=== PATIENT | male | born 1965 | race Caucasian/White ===

== ENCOUNTER 2020-06-26 10:51 | Inpatient (IN) | payer OTHER ==
[~2020-06-26] VITALS: Ht 182.9 cm; Wt 90.3 kg
[~2020-06-26 10:51] MED LIST: ASPIRIN EC325 M1 PO; CRESTOR20 MG PO; NITROSTAT0.4 MG SL; PLAVIX75 MG PO; PRILOSEC20 MG PO; SYNTHROID88 MCG PO
[2020-06-26 12:32] LABS: BASOPHILS 0.1 % (0-2); EOSINOPHILS 1.8 % (0-7); HEMATOCRIT 45.8 % (42.0-54.0); HEMOGLOBIN 15.9 g/dL (13.5-17.5); IMMATURE GRANULOCYTES 0.2 % (0-5); LYMPHOCYTES 21.7 % (15-50); MCHC 34.7 g/dL (31.0-37.0); MEAN PLATELET VOLUME 10.9 fL (7.4-10.4); MONOCYTES 7.8 % (2-11); NEUTROPHILS 68.4 % (40-80); PLATELET COUNT 156 10x3/uL (130-400); RBC 4.82 10x6/uL (4.20-6.10); RDW 13.3 % (11.5-14.5)
[2020-06-26 12:34] LABS: ANION GAP 9.7 mmol/L (8-16); CALCIUM 9.5 mg/dL (8.5-10.1); CARBON DIOXIDE 26.3 mmol/L (21.0-32.0); CREATININE - SERUM 1.2 mg/dL (0.6-1.3)
[2020-06-26 12:40] LABS: BILIRUBIN - TOTAL 0.38 mg/dL (0.2-1.3); PROTEIN - SERUM 7.9 g/dL (6.4-8.2)
[2020-06-26 12:43] LABS: BILIRUBIN NEGATIVE (NEGATIVE); KETONE SMALL mg/dL (NEGATIVE); NITRITE NEGATIVE (NEGATIVE); UROBILINOGEN NORMAL mg/dL (< 2)
[2020-06-26 12:45] LABS: BACTERIA FEW HPF (NONE SEEN); WHITE CELLS - URINE 0-5 HPF (0-1)
[2020-06-26 14:00] VITALS: BP 126/89
[2020-06-26 17:27] VITALS: BP 108/69
--- NOTE | 2020-06-26 19:46 | NUR ---
RECIEVED REPORT FROM OFF GOING. ALERT AND ORIENTED X4. UP AD ELEUTERIO TO B/R. IV TO RT AC SL. ENIES ANY NEEDS AT THIS TIME.
[2020-06-26 22:24] VITALS: BP 113/71
[2020-06-27 03:19] VITALS: BP 121/70
[2020-06-27 03:43] VITALS: BP 131/71; BMI 27.0
[2020-06-27 06:04] LABS: APTT 38.5 SECONDS (22.8-39.4); INR 1.07 (0.85-1.17); PROTIME 13.9 SECONDS (11.6-15.0)
[2020-06-27 06:19] LABS: CKMB 1.1 U/L (0.0-3.6); CREATINE KINASE 135 UL (21-232); MAGNESIUM - SERUM 2.1 mg/dL (1.8-2.4); TROPONIN-I < 0.017 ng/mL (0.000-0.060)
[2020-06-27 06:59] VITALS: BP 102/61
[2020-06-27 07:00] VITALS: BP 82/64
[2020-06-27 10:19] LABS: CALC OSMOLALITY 275 mosm/kg (275-300); CALCIUM 9.2 mg/dL (8.5-10.1); CARBON DIOXIDE 22.6 mmol/L (21.0-32.0); CHLORIDE - SERUM 102 mmol/L (98-107); CREATININE - SERUM 0.9 mg/dL (0.6-1.3); GLUCOSE 105 mg/dL (74-106); POTASSIUM - SERUM 3.9 mmol/L (3.5-5.1); SODIUM 137 mmol/L (136-145); UREA NITROGEN 17 mg/dL (7-18); eGFR NON AFRICAN AMERICAN > 90 mL/min (90-120)
[2020-06-27 10:21] LABS: HEMATOCRIT 44.5 % (42.0-54.0); HEMOGLOBIN 15.3 g/dL (13.5-17.5); MCH 33.2 pg (26.0-34.0); MCHC 34.4 g/dL (31.0-37.0); MCV 96.5 fL (80.0-100.0); MEAN PLATELET VOLUME 11.4 fL (7.4-10.4); PLATELET COUNT 163 10x3/uL (130-400); RBC 4.61 10x6/uL (4.20-6.10); RDW 13.7 % (11.5-14.5); WBC 7.7 10x3/uL (4.8-10.8)
[2020-06-27 10:29] LABS: ALBUMIN 3.8 g/dL (3.4-5.0); ALKALINE PHOSPHATASE 82 U/L (30-120); ALT (SGPT) 19 U/L (10-68); BILIRUBIN - TOTAL 0.44 mg/dL (0.2-1.3); PROTEIN - SERUM 7.7 g/dL (6.4-8.2)
[2020-06-27 10:30] VITALS: BP 113/81
[2020-06-27 10:30] LABS: LIPASE 492 U/L (73-393)
[2020-06-27 10:53] LABS: PLATELET ESTIMATE NORMAL
[2020-06-27 12:34] LABS: CKMB 0.8 U/L (0.0-3.6); CREATINE KINASE 135 UL (21-232)
[2020-06-27 12:35] LABS: TROPONIN-I < 0.017 ng/mL (0.000-0.060)
[2020-06-27 13:05] VITALS: Ht 182.9 cm; Wt 90.3 kg
[2020-06-27] MEDS ORDERED: BACTRIM DS TAB1 EAC1 PO (13:40)
[2020-06-27] MEDS ORDERED: FLOMAX0.4 MG PO (13:41)
[2020-06-27] MEDS ORDERED: ULTRAM50 MG PO (13:42)
--- NOTE | 2020-06-27 14:43 | NUR ---
PT DISCHARGED HOME VIA WHEELCHAIR WITH FAMILY. SCRIPT GIVEN. PT SIGNED PROPER DISCHARGE INSTRUCTIONS AND REMOVED ALL VALUABLES FROM THE ROOM. PIV REMOVED WITH CATHETER TIP FULLY INTACT.
--- NOTE | 2020-06-28 17:22 | NUR ---
PT CALLED WITH COMPLAINT OF NOT BEING ABLE TO GET SCRIPT FILLED FROM [facility]. THEY STATE PRESCRIBER NOT ABLE TO PRESCRIBE SCHEDULE 5 NARCOTICS PER [place] SITE. MARCELO ALCANTAR GONE AT PRESENT AND ESAU ALCANTAR NOT AWARE OF PROBLEM. STATES FOR PT TO TAKE EXTRA STRENGTH TYLENOL TONITE AND FOLLOW UP WITH DR AREVALO HIS PCP IN MORNING FOR SCRIPT.
== END 2020-06-27 14:44 | disposition home or self-care (01) | DRG 727 ==
LOC: D.ER 10:51 → D.M2 18:20
PROVIDERS: Emergency Medicine; ADMIT Family Medicine; ATTEND Family Medicine
DX: N41.9 Inflammatory disease of prostate, unspecified (principal); K85.90 Acute pancreatitis without necrosis or infection, unspecified; E87.1 Hypo-osmolality and hyponatremia; K21.9 Gastro-esophageal reflux disease without esophagitis; I25.10 Atherosclerotic heart disease of native coronary artery without angina pectoris; I73.9 Peripheral vascular disease, unspecified; M17.12 Unilateral primary osteoarthritis, left knee; I95.9 Hypotension, unspecified; Z72.0 Tobacco use

== ENCOUNTER 2021-02-21 07:02 | Day surgery (SDC) | payer OTHER ==
[~2021-02-21] VITALS: Ht 182.9 cm; Wt 98.2 kg
--- NOTE | ~2021-02-21 | OP ---
PATIENT NAME: EVE LAW MEDICAL RECORD: [id number] :63 LOCATION:[facility] ADMISSION DATE: SURGEON: ELOY TONEY MD DATE OF OPERATION: 02/21/2021 PREOPERATIVE DIAGNOSES: 1. Worsening Gastroesophageal reflux. 2. Rule out pancreatic disease. POSTOPERATIVE DIAGNOSES: 1. Severe esophagitis, LA grade III. 2. Hiatal hernia. 3. One antral gastric ulcer. SURGEON: Eloy Toney MD TUBE TESTER: None. PROCEDURE: Esophagogastroduodenoscopy with distal esophageal, antral biopsies to rule out Helicobacter pylori as well as mid duodenal biopsies. The patient has had a history of H. pylori. He is not sure if it was treated completely or not. I did find certainly enough disease particularly in the esophagus to account for the patient's pain. The risks, possible complications, and alternatives of the procedure were explained to the patient. He elects to proceed. The discussion specifically included, but was not limited to, bleeding requiring emergency reoperation, infection, intestinal injury. ENDOSCOPIC COURSE: The patient was conveyed to the endoscopy suite electively on 02/21/2021. IV sedation was induced by the anesthesia staff. A bite block was inserted. A gastroscope was inserted into the mouth. It was advanced easily into the hypopharynx. The esophagus was easily intubated as were the stomach and duodenum. Upon withdrawal, retroflexed and angulus views were obtained. Antral biopsies were obtained. Mid duodenal biopsies were obtained. Distal esophageal biopsies were obtained. The endoscope was then withdrawn under direct vision. The patient has been tried on a number of medicines in the past for gastritis and gastroesophageal reflux including Tums, H2 blockers, and PPIs. I have recommended for now that he take 40 mg of Pepcid in the morning and 40 at night as well as 2 Prevacid that he is currently on. I will see him in the office in a few weeks to review the results of the biopsies. TRANSINT:[id number] Voice Confirmation ID: [id number] DOCUMENT ID: [id number] OPERATIVE REPORT [id number] EVE LAW KATHY ELOY TONEY MD CC: [id number] DICTATION DATE: 02/21/21 1109 SOURCING ENGINEER: 02/21/212020 [facility] 02/21/21 [place] [address]
[~2021-02-21 07:02] MED LIST changes: +BACTRIM DS TAB1 EAC1 PO; +FLOMAX0.4 MG PO; +ULTRAM50 MG PO
[2021-02-21 07:20] LABS: HEMATOCRIT 46.5 % (42.0-54.0); HEMOGLOBIN 15.8 g/dL (13.5-17.5); MCH 32.6 pg (26.0-34.0); MCV 95.7 fL (80.0-100.0); MEAN PLATELET VOLUME 8.9 fL (7.4-10.4); RBC 4.86 10x6/uL (4.20-6.10); RDW 13.8 % (11.5-14.5); WBC 12.7 10x3/uL (4.8-10.8)
[2021-02-21 07:43] VITALS: BP 116/71; Ht 182.9 cm; Wt 98.2 kg
--- NOTE | 2021-02-21 12:26 | HP ---
PATIENT: EVE LAW MEDICAL RECORD: [id number] ACCOUNT: [id number] LOCATION:[facility] : 63 ADMISSION DATE: 02/21/21 PCP: DUC AREVALO MD HISTORY AND PHYSICAL EXAMINATION HISTORY OF PRESENT ILLNESS: The patient is here due to worsening reflux symptoms and he is being worked up for pancreatic disease at [facility]. They desired an upper endoscopy to investigate the possibility of peptic ulcer disease or gastroesophageal reflux. I told him that I will take lots of pictures and perform multiple biopsies. He has had no hematemesis. No hematochezia. No hemoptysis. HOME MEDICATIONS: Flomax. ALLERGIES: No known drug allergies. SOCIAL HISTORY: He smokes 1 pack of cigarettes per day. PAST MEDICAL AND SURGICAL HISTORY: Coronary stents; gastroesophageal reflux; hypothyroidism, off Synthroid; coronary artery disease; history of colon polyps. PHYSICAL EXAMINATION: GENERAL: The patient does not appear acutely ill. He does not appear chronically ill. EARS: External ears appear normal. EYES: Extraocular movements are intact. NECK: Trachea is midline. CHEST: No intercostal retractions. PULMONARY: Nonlabored. No stridor. IMPRESSION: Worsening gastroesophageal reflux. PLAN: Plan will be EGD with biopsies. TRANSINT:[id number] Voice Confirmation ID: [id number] DOCUMENT ID: [id number] TIARA TONEY MD at 1226 CC: Cait FOX SARAH LYNN MD [id number] DICTATION DATE: 02/21/21 1003 MATHEMATICS EDUCATION PROFESSOR: 02/21/21 1026 [facility] [address] [place] [address]
--- NOTE | 2021-02-21 12:44 | NUR ---
1119 IV DC'D. CATHETER TIP INTACT. NO BLEEDING AT SITE. COBAN DRESSING APPLIED. REVIEWED DISCHARGE INSTRUCTIONS WITH PT AND HIS WHO BOTH VOICE UNDERSTANDING OF THESE INSTRUCTIONS.
== END 2021-02-21 11:28 | disposition home or self-care (01) ==
LOC: D.OPS 07:02
PROVIDERS: Anesthesiology; ATTEND Surgery
DX: K21.00 Gastro-esophageal reflux disease with esophagitis, without bleeding (principal); K44.9 Diaphragmatic hernia without obstruction or gangrene; K25.9 Gastric ulcer, unspecified as acute or chronic, without hemorrhage or perforation; K92.0 Hematemesis; F17.210 Nicotine dependence, cigarettes, uncomplicated

== ENCOUNTER → 2021-03-22 09:02 | Outpatient (CLI) | payer OTHER ==
[2021-02-21 07:43] VITALS: BMI 29.3
[2021-03-22 09:36] LABS: ALBUMIN 3.8 g/dL (3.4-5.0); BILIRUBIN - DIRECT 0.11 mg/dL (0.00-0.30); BILIRUBIN - INDIRECT 0.3 mg/dL (0.00-1.00); BILIRUBIN - TOTAL 0.41 mg/dL (0.2-1.3); PROTEIN - SERUM 7.5 g/dL (6.4-8.2)
== END | disposition home or self-care (01) ==
LOC: D.US 12-21 08:00 → D.LAB 12-21 08:30
PROVIDERS: ATTEND Internal Medicine Gastroenterology
DX: K76.0 Fatty (change of) liver, not elsewhere classified (principal)